=== PATIENT | male | born 1980 | race Two or more races ===

== ENCOUNTER 2017-03-06 09:36 | Emergency (ER) | payer OTHER ==
[~2017-03-06] VITALS: Ht 177.8 cm; Wt 89.4 kg
[~2017-03-06 09:36] MED LIST: IBUPROFEN600 MG ORAL; IBUPROFEN800 M1 PO; NKM; NORCO 5-325 TA1 EACH ORAL
[2017-03-06 09:45] VITALS: BP 134/79
[2017-03-06] MEDS ORDERED: Ampicillin/Sulbactam Sod 3 GM in NS 110 ML IVPB ONE (10:15)
[2017-03-06] MEDS ORDERED: Ketorolac 30mg Inj IV ONE (10:15)
[2017-03-06] MEDS ORDERED: Dexamethasone 4mg/ml vial IVP ONE (10:15)
[2017-03-06] MEDS ORDERED: Unasyn 3gm Inj ONE (10:24)
[2017-03-06] MEDS ORDERED: AUGMENTIN 875-1 EAC1 ORAL (11:58)
[2017-03-06] MEDS ORDERED: IBUPROFEN800 MG ORAL (11:58)
--- NOTE | 2017-03-06 12:02 | Emergency Room Report ---
History of Present Illness General Chief Complaint: Sore Throat Source: Patient Present Illness HPI 36-year-old male walks in with 2-3 days of right-sided pain to throat when swallowing, hoarseness and intermittent difficulty swallowing secretions Denies fever or chills States hasn't really here drink anything due to pain Hasn't had any [id number] medications at home No sick contacts that he knows about Other medical problems Allergies: Coded Allergies: No Known Allergies (Unverified , 06/12/14) Patient History Past Medical History: none Past Surgical History: none Pertinent Family History: none Social History: Denies: smoking, alcohol use, drug use Immunizations: UTD Reviewed Nursing Documentation: PMH: Agreed, PSxH: Agreed Nursing Documentation-PMH Past Medical History: No Stated History Hx Cardiac Problems: No Hx Hypertension: No Hx Pacemaker: No Hx Asthma: No Hx COPD: No Hx Diabetes: No Hx Cancer: No Hx Gastrointestinal Problems: No Hx Dialysis: No - SCIATICA, SPINAL SURGERY Hx Neurological Problems: No Hx Cerebrovascular Accident: No Hx Seizures: No Review of Systems All Other Systems: negative except mentioned in HPI Physical Exam Vital Signs Date Time Temp Pulse Resp B/P (MAP) Pulse Ox O2 Delivery O2 Flow Rate FiO2 03/06/17 09:38 98.1 56 16 134/79 99 Room Air Sp02 EP Interpretation: reviewed, normal General Appearance: normal inspection, well appearing, no apparent distress, alert, GCS 15, non-toxic, other - hoarseness of voice Head: normocephalic, atraumatic Eyes: bilateral eye PERRL, bilateral eye EOMI ENT: normal ENT inspection, hearing grossly normal, normal voice, other - Erythema overlying right peritonsillar area, no palpable fluctuance, uvula mildly displaced left Neck: normal inspection, full range of motion, supple, no bony tend Respiratory: normal inspection, lungs clear, normal breath sounds, no respiratory distress, no retraction, no wheezing Cardiovascular #1: regular rate, rhythm, no edema Gastrointestinal: normal inspection, normal bowel sounds, non tender, soft, no guarding, no hernia Genitourinary: no CVA tenderness Musculoskeletal: normal inspection, back normal, normal range of motion, Magaly' s Sign negative Neurologic: normal inspection, alert, oriented x3, responsive, coal shoveler III-XII nml as tested, DTRs symmetric, speech normal Psychiatric: normal inspection, judgement/insight normal, mood/affect normal Skin: normal inspection, normal color, no rash Medical Decision Making Diagnostic Impression: Primary Impression: Peritonsillar cellulitis ER Course 36-year-old male with likely right-sided peritonsillar cellulitis hoarseness of voice, difficulty controlling secretions However afebrile and not septic appearing Improved dramatically with IV Unasyn, IV Toradol and IV Decadron Feels much better, can handle secretions, voice almost back to normal Discharge with prescriptions for Augmentin for one week and ibuprofen as needed He understands to return for worsening symptoms and if unable to take oral antibiotics ER course: Patient has remained stable during ED stay. Patient is to be discharged to home. Prescriptions given are motrin, augmentin Patient is instructed to follow up with their primary care doctor within 5 days. Strict return precautions discussed with patient such as fever, chills, worsening/severe pain, nausea, vomiting, which may indicate severe illness. Patient verbalizes understanding and agrees with plan. Please note that this Emergency Department Report was dictated using mPort[employer] receptionist technology software, occasionally this can lead to erroneous entry secondary to interpretation by the dictation equipment Last Vital Signs Date Time Temp Pulse Resp B/P (MAP) Pulse Ox O2 Delivery O2 Flow Rate FiO2 03/06/17 09:45 98.1 56 16 134/79 99 Room Air Status: improved Disposition: HOME, SELF-CARE Condition: Improved Scripts Ibuprofen* (MOTRIN*) 800 Mg Tablet 800 MG ORAL THREE TIMES A DAY for 7 Days, #30 TAB 0 Refills Prov: GORDO OHARA M.D. 03/06/17 Amoxicillin/Potassium Clav 875-125* (AUGMENTIN 875-125 TABLET*) 1 Each Tablet 1 TAB ORAL TWICE A DAY for 7 Days, #14 TAB Prov: GORDO OHARA M.D. 03/06/17 Patient Instructions: Peritonsillar Cellulitis Additional Instructions: - Take ALL antibiotics until finished - You can take ibuprofen every 8 hours as needed for pain - take with food. - Return to ER if symptoms worse, cant swallow antibiotics GORDO OHARA M.D. Mar 06, 2017 12:02
[2017-03-06 12:05] VITALS: BP 97/67
== END 2017-03-06 12:05 | disposition home or self-care (01) ==
LOC: EMR 09:50
DX: J36 Peritonsillar abscess (principal)
CPT/HCPCS: 96374; 96375; 99284; J0295; J1100; J1885